=== PATIENT | male | born 1990 | race Hispanic/Latino ===

== ENCOUNTER 2018-12-14 16:37 | Emergency (ER) | payer SELFPAY ==
[2018-12-14 16:42] VITALS: BP 137/75; PULSE 127; TEMP 98.5; O2SAT 97
[2018-12-14 17:05] VITALS: RESP 18
== END 2018-12-14 17:04 | disposition left against medical advice (07) ==
LOC: C.ER 16:37
DX: Z02.89 Encounter for other administrative examinations (principal)

== ENCOUNTER 2018-12-14 17:05 | Emergency (ER) | payer SELFPAY | END 2018-12-14 17:39 | disposition left against medical advice (07) | LOC: C.ER 17:39 ==

== ENCOUNTER 2018-12-14 18:24 | Emergency (ER) | payer SELFPAY | END 2018-12-14 18:47 | disposition left against medical advice (07) | LOC: C.ER 18:24 | DX: Z02.89 Encounter for other administrative examinations (principal) ==

== ENCOUNTER 2018-12-16 16:39 | Inpatient (IN) | payer SELFPAY ==
[2018-12-16 19:17] LABS: BASO # 0.1 K/uL (0.0-0.2); BASO % 0.7 % (0.0-2.0); EOS # 0.2 K/uL (0.0-0.7); EOS % 1.9 % (0.0-4.0); HEMOGLOBIN 14.6 g/dL (12.0-18.0); LYMPH # 2.5 K/uL (1.0-4.3); MEAN CELL VOLUME 92.7 fL (80.0-94.0); MEAN CORPUSCULAR HEMOGLOBIN 32.7 pg (27.0-31.0); MEAN CORPUSCULAR HGB CONC 35.3 g/dL (33.0-37.0); MEAN PLATELET VOLUME 7.9 fL (7.2-11.7); MONO # 0.4 K/uL (0.0-0.8); MONO % 4.7 % (0.0-10.0); NEUT # 5.2 K/uL (1.8-7.0); NEUT % 62.7 % (50.0-75.0); RBC 4.44 Mil/uL (4.40-5.90); RED CELL DISTRIBUTION WIDTH 13.5 % (11.5-14.5); URINE BILIRUBIN NEGATIVE (NEGATIVE); URINE BLOOD NEGATIVE (NEGATIVE); URINE CLARITY Clear (Clear); URINE COLOR Yellow (YELLOW); URINE GLUCOSE (UA) NORMAL (Normal); URINE LEUKOCYTE ESTERASE 1+ Leu/uL (Negative); URINE PROTEIN NEGATIVE (NEGATIVE); URINE UROBILINOGEN NORMAL mg/dL (0.2-1.0); WHITE BLOOD COUNT 8.3 K/uL (4.8-10.8)
[2018-12-16 19:29] LABS: ALB/GLOB RATIO 1.4 (1.0-2.1); ALBUMIN 4.4 g/dL (3.5-5.0); ALT/SGPT 72 U/L (21-72); AST/SGOT 181 U/L (17-59); BLOOD UREA NITROGEN 13 mg/dL (9-20); CALCIUM 8.9 mg/dl (8.6-10.4); GFR NON-AFRICAN AMERICAN > 60
[2018-12-16 19:37] LABS: BARBITURATES, UR NEGATIVE (NEGATIVE); OPIATES, UR NEGATIVE (NEGATIVE); PHENCYCLIDINE, UR NEGATIVE (NEGATIVE)
[2018-12-16 19:52] LABS: BENZODIAZEPINES, UR POSITIVE (NEGATIVE)
--- NOTE | 2018-12-16 20:23 | C.PDOC ---
History Of Present Illness 28 year old male brought in by family requesting ETOH detox. Patient drinks a large volume of ETOH a day. He has had failed multiple detox and rehab programs. He has been on a fields for the past 6 months, acutely worse over the last 2 weeks. Patient has had trouble with the law and had restraining order placed by . Positive family Hx of addiction. Patient also complains of torn plantar callus on his right foot after walking in the rain in sandals for the past 2 days. Time Seen by Provider: 12/16/18 19:54 Chief Complaint (Nursing): Substance Abuse History Per: Patient History/Exam Limitations: no limitations Onset/Duration Of Symptoms: Days Current Symptoms Are (Timing): Still Present Modifying Factor(s): Alcohol Recent travel outside of the [place]: No Past Medical History Reviewed: Historical Data, Nursing Documentation, Vital Signs Vital Signs: Last Vital Signs Temp 97.9 F 12/16/18 16:47 Pulse 128 H 12/16/18 16:47 Resp 20 12/16/18 16:47 BP 131/84 12/16/18 16:47 Pulse Ox 95 12/16/18 16:47 Primary Care Provider: FAMILY PROVIDER,NO Family History: States: Unknown Family Hx - Social History Hx Alcohol Use: Yes Hx Substance Use: No - Immunization History Hx Tetanus Toxoid Vaccination: No Hx Influenza Vaccination: No Hx Pneumococcal Vaccination: No Review Of Systems Constitutional: Negative for: Fever, Chills Cardiovascular: Negative for: Chest Pain, Palpitations Respiratory: Negative for: Cough, Shortness of Breath Gastrointestinal: Negative for: Nausea, Vomiting Skin: Positive for: Other (Torn callus) Neurological: Negative for: Weakness, Numbness Physical Exam - Physical Exam Appears: Non-toxic, Other (Large obese iraqi tongan male, intoxicated, stuporous) Skin: Warm Head: Atraumatic, Normacephalic Eye(s): bilateral: Normal Inspection Oral Mucosa: Moist Neck: Normal, Supple Chest: Symmetrical, No Tenderness Cardiovascular: Rhythm Regular Respiratory: Normal Breath Sounds, No Rales, No Rhonchi, No Wheezing Gastrointestinal/Abdominal: Soft, No Tenderness Extremity: Normal ROM (x4), Other (6x6cm torn callus, in place, no subcutaneous tissue noted) Neurological/Psych: Oriented x3, Normal Speech ED Course And Treatment - Laboratory Results Result Diagrams: 12/16/18 19:04 12/16/18 19:04 Lab Results: Total Bilirubin 0.5 mg/dL (0.2-1.3) 12/16/18 19:04 AST 181 U/L (17-59) H 12/16/18 19:04 ALT 72 U/L (21-72) 12/16/18 19:04 Alkaline Phosphatase 68 U/L (38-126) 12/16/18 19:04 Total Protein 7.5 g/dL (6.3-8.3) 12/16/18 19:04 Albumin 4.4 g/dL (3.5-5.0) 12/16/18 19:04 Globulin 3.1 gm/dL (2.2-3.9) 12/16/18 19:04 Albumin/Globulin Ratio 1.4 (1.0-2.1) 12/16/18 19:04 Urine Color Yellow (YELLOW) 12/16/18 19:04 Urine Clarity Clear (Clear) 12/16/18 19:04 Urine pH 6.0 (5.0-8.0) 12/16/18 19:04 Ur Specific [place] 1.011 (1.003-1.030) 12/16/18 19:04 Urine Protein Negative mg/dL (NEGATIVE) 12/16/18 19:04 Urine Glucose (UA) Normal mg/dL (Normal) 12/16/18 19:04 Urine Ketones Negative mg/dL (NEGATIVE) 12/16/18 19:04 Urine Blood Negative (NEGATIVE) 12/16/18 19:04 Urine Nitrate Negative (NEGATIVE) 12/16/18 19:04 Urine Bilirubin Negative (NEGATIVE) 12/16/18 19:04 Urine Urobilinogen Normal mg/dL (0.2-1.0) 12/16/18 19:04 Ur Leukocyte Esterase 1+ Zora/uL (Negative) H 12/16/18 19:04 Urine WBC (Auto) 3 /hpf (0-5) 12/16/18 19:04 Urine RBC (Auto) 1 /hpf (0-3) 12/16/18 19:04 O2 Sat by Pulse Oximetry: 95 (room air) Pulse Ox Interpretation: Normal Medical Decision Making Medical Decision Making: Medically [place] [address]: sweating, shaky, "feel withdrawal coming on" Librium 100 PO Disposition Doctor Will See Patient In The: Hospital Counseled Patient/Family Regarding: Studies Performed, Diagnosis - Disposition Disposition: HOSPITALIZED Disposition Time: 20:30 Condition: GOOD - Clinical Impression Clinical Impression: Alcohol abuse - Scribe Statement The provider has reviewed the documentation as recorded by the Nohemiibbrittaney Woodruff All medical record entries made by the Nohemiibbrittaney were at my direction and personally dictated by me. I have reviewed the chart and agree that the record accurately reflects my personal performance of the history, physical exam, medical decision making, and the department course for this patient. I have also personally directed, reviewed, and agree with the discharge instructions and disposition.
[2018-12-16] MEDS ORDERED: Bacitracin 500 Units/gm Oint Foilpak UD ONE (21:18)
[2018-12-16] MEDS ORDERED: Bacitracin Ointment 30 GM TUBE TOP ONE (21:24)
--- NOTE | 2018-12-16 21:25 | PCM.BM ---
Treatment Plan Problems - Problems identified on initial assessmt knowledge deficit alcohol use Date Initiated: 12/16/18 Time Initiated: 21:23 Assessment reference: NA Status: Active ineffective family coping compromised Date Initiated: 12/16/18 Time Initiated: 21:25 Assessment reference: NA Status: Active defensive coping Date Initiated: 12/16/18 Time Initiated: 21:26 Assessment reference: NA Status: Active Treatment assets and liabiliti Patient Assests: cooperative, cognitively intact Patient Liabilities: substance abuse, legal issue - Milieu Protocol Maintain good personal hygiene: daily Encourage regular showers, daily Remind patient to perform daily oral care, daily Assist patient to perform ADL's Conduct patient checks and document Observation sheet: Q15 minutes Maintain personal safety: every shift Educate patient to report safety concerns to staff, every shift Monitor environment for contraband/sharps Medication safety: Monitor for expected outcome, potential side effects: every shift, Assess barriers to learning: every shift, Assess readiness for medication education: every shift
[2018-12-17] MEDS: Multiple Vitamins Tab PO SCH (14:05)
--- NOTE | 2018-12-17 19:34 | PCM.PSYCH ---
Initial Psychiatric Evaluation - Initial Psychiatric Evaluation Type of Admission: Voluntary Legal Status: Capacity Chief Complaint (in patient's own words): "I want to get better" History of Present Illness and Precipitating Events: Patient is a 28 year old male, who presented to the ED for alcohol detox. Patient reports that he has been to multiple detox in the past, he reports being ad [facility] multiple time, last one was for 6 months. Patient reports that he has been drinking alcohol since he was 13 years old. He reports drinking on and off, but that in the last 3 weeks he was drinking about 2 pints of vodka daily, last use was before coming to the ED. He reports that because of his drinking he has a restraining order from his , and he has been homeless for the last 2-3 days. He reports that he will be going to [facility] after his discharge. Patient reports that he has a 6 month old doctor, and he is motivated to get help for his drinking, and be a better father. He reports having withdrawal symptoms when he drinks, but denies having seizures or DTs. Patient. Patient denies any other substance use and he is currently unemployed. He reports that his sleep and appetite is good. PsychHx: Depression - Was taking Wellbutrin in the past, but does not recall the dosing. Denies any suicide or suicide attempt PMHx: Right foot plantar callus FamHx: 2 Siblings with alcohol and substance use disorders Current Medications: Active Medications Generic Name Dose Route Start Last Admin Trade Name Freq PRN Reason Stop Dose Admin Chlordiazepoxide 25 mg 12/16/18 22:26 12/16/18 22:33 Librium PO 25 mg Q6H PRN Administration Symptoms of alcohol withdrawl Chlordiazepoxide 25 mg 12/17/18 13:45 12/17/18 17:06 Librium PO 12/22/18 13:44 25 mg Q6 NIA Administration Taper Clonidine HCl 0.1 mg 12/17/18 13:34 12/17/18 17:06 Catapres PO 0.1 mg Q4H PRN Administration Symptoms of alcohol withdrawl Folic Acid 1 mg 12/17/18 13:15 12/17/18 14:05 Folic Acid PO 1 mg DAILY NIA Administration Hydroxyzine HCl 50 mg 12/17/18 13:36 12/17/18 17:06 Atarax PO 50 mg Q6H PRN Administration Anxiety Ibuprofen 600 mg 12/17/18 13:37 Motrin Tab PO Q6H PRN Pain, moderate (4-7) Multivitamins 1 tab 12/17/18 13:45 12/17/18 14:05 Hexavitamin PO 1 tab DAILY NIA Administration Thiamine HCl 100 mg 12/17/18 13:45 12/17/18 14:05 Vitamin B1 Tab PO 100 mg DAILY NIA Administration Trazodone HCl 50 mg 12/17/18 22:00 Desyrel PO HS PRN Insomnia Past Psychiatric History - Past Psychiatric History Previous Treatment History: Inpatient Prior Psychiatric Treatment: Multiple Detox in the past History of ETOH/Drug Use: Alcohol abuse disorder Pertinent Medical Hx (Current Medical&Sleep Prob, Allergies): Allergies Allergy/AdvReac Type Severity Reaction Status Date / Time amoxicillin Allergy Verified 12/16/18 16:50 Penicillins Allergy Verified 12/16/18 16:50 Sulfa (Sulfonamide Allergy Verified 12/16/18 16:50 Antibiotics) No Known Home Med 12/16/18 Review of Systems - Psychiatric Psychiatric: As Per HPI, Anxiety, Behavioral Changes, Depression, Irritability Mental Status Examination - Personal Presentation Personal Presentation: Looks older than stated age - Affect Affect: Constricted, Depressed - Motor Activity Motor Activity: Calm - Reliability in Providing Information Reliability in Providing Information: Fair - Speech Speech: Relevant, Coherent - Mood Mood: Depressed, Anxious - Formal Thought Process Formal Thought Process: No Impairment - Obsessions/Compulsions Obsessions: None Compulsions: None - Cognitive Functions Orientation: Person, Place, Situation, Time Sensorium: Alert Attention/Concentration: Attentive Estimate of Intelligence: Average Judgement: Imparied, as evidence by: Poor judgement - Risk Risk: Seizure, Withdrawal - Strength & Assets Inventory Strength & Assets Inventory: Family support DSM 5 DX - DSM 5 DSM 5 Diagnosis: Alcohol Withdrawal Alcohol Use Disorder Major Depressive Disorder - Recommended/Plan of Treatment Treatment Recommendations and Plan of Treatment: Taper with Librium Gabapentin for augmentation if needed As needed medications - Librium, Clonidine, Atarax and Trazodone All risks, benefits and alternatives of the meds discussed, and the pt agreed and understood. Attend groups and activities Supportive therapy and psychoeducation AR for abstinence CBT for relapse prevention Encourage MAT Refer to rehab or IOP, and self-help groups Teach healthy lifestyle methods, i.e. diet, exercise, meditation 35 min - Smoking Cessation Smoking Cessation Initiated: No Reason for not providing: Patient is a non-smoker
[2018-12-18 09:02] VITALS: BP 121/70; PULSE 77; RESP 18; TEMP 97.2; O2SAT 96
[2018-12-18] MEDS: Multiple Vitamins Tab PO SCH (10:35)
--- NOTE | 2018-12-18 16:52 | PCM.PYCHDC ---
Mental Status Examination - Mental Status Examination Orientation: Person, Place, Situation, Time Memory: Intact Mood: Neutral Speech: Appropriate Attention: WNL Concentration: WNL Association: WNL Fund of Knowledge: WNL Formal Thought Process: No Impairment Suicidal Ideation: No Current Homicidal Ideation?: No Discharge Summary - Discharge Note Reason for Hospitalization: Alcohol Withdrawal Alcohol Use Disorder - Severe Consultations:: List each consultation separately and include: 1. Reason for request. 2. Findings. 3. Follow-up Summary of Hospital Course include:: 1. Description of specific treatment plan utilized for patients during their course of treatmen. 2. Summarize the time- course for resolution of acute symptoms and/or regressed behaviors. 3. Describe issues identified and worked on during hospitalization. 4. Describe medication utilized. 5. Describe medical problems identified and treated. 6. Reassessment of suicide risk Summary of Hospital Course: Patient is a 28 year old male, who presented to the ED for alcohol detox. Patient reports that he has been to multiple detox in the past, he reports being ad [facility] multiple time, last one was for 6 months. Patient reports that he has been drinking alcohol since he was 13 years old. He reports drinking on and off, but that in the last 3 weeks he was drinking about 2 pints of vodka daily, last use was before coming to the ED. He reports that because of his drinking he has a restraining order from his , and he has been homeless for the last 2-3 days. He reports that he will be going to [facility] after his discharge. Patient reports that he has a 6 month old doctor, and he is motivated to get help for his drinking, and be a better father. He reports having withdrawal symptoms when he drinks, but denies having seizures or DTs. Patient. Patient denies any other substance use and he is currently unemployed. He reports that his sleep and appetite is good. The patient was admitted and started on treatment with psychotherapy, support, psychoeducation and medications. All the risks and benefits of medications are discussed and the patient understood and agreed. SD and CBT used. The patient attended groups and activities, as well as milieu therapy. The patient was improving with the treatments provided. After care discussed with the patient. PsychHx: Depression - Was taking Wellbutrin in the past, but does not recall the dosing. Denies any suicide or suicide attempt PMHx: Right foot plantar callus FamHx: 2 Siblings with alcohol and substance use disorders - Final Diagnosis (DSM 5) Condition upon Discharge: FAIR Disposition: AGAINST MEDICAL ADVICE Follow-up Treatment Plan: Patient was made aware of the risks of leaving AMA including relapse, overdose and even . He understood but still left.
== END 2018-12-18 14:30 | disposition left against medical advice (07) | DRG 894 ==
LOC: C.ER 16:39 → C.9E 20:30 → C.5S 21:07 → C.7D 21:12 → OBSVTOIN 12-17 11:52
PROVIDERS: ADMIT Psychiatry & Neurology Psychiatry; ATTEND Psychiatry & Neurology Psychiatry
PROC: HZ2ZZZZ Detoxification Services for Substance Abuse Treatment (ICD-10-PCS; principal; 2018-12-17)
PROC: HZ59ZZZ Individual Psychotherapy for Substance Abuse Treatment, Supportive (ICD-10-PCS; 2018-12-17)
PROC: GZ3ZZZZ Medication Management (ICD-10-PCS; 2018-12-17)
PROC: HZ46ZZZ Group Counseling for Substance Abuse Treatment, Psychoeducation (ICD-10-PCS; 2018-12-17)
DX: F10.230 Alcohol dependence with withdrawal, uncomplicated (principal); F32.9 Major depressive disorder, single episode, unspecified; Z87.891 Personal history of nicotine dependence; Z59.0 Homelessness